=== PATIENT | male | born 1980 | race Hispanic/Latino ===

== ENCOUNTER 2018-02-13 17:12 | Emergency (ER) | payer OTHER ==
[~2018-02-13] VITALS: Ht 172.7 cm; Wt 86.2 kg
[2018-02-13 17:51] VITALS: BP 133/70
[2018-02-13 18:13] LABS: ABSOLUTE BASOPHIL COUNT 0 /CUMM (0.0-0.2); ABSOLUTE EOSINOPHIL COUNT 0.1 /CUMM (0.0-0.7); ABSOLUTE GRANULOCYTE CT 4.2 /CUMM (1.4-6.5); ABSOLUTE LYMPH COUNT 2.1 /CUMM (1.2-3.4); ABSOLUTE MONOCYTE COUNT 0.8 /CUMM (0.10-0.60); BASOPHIL % 0.4 % (0.0-2.0); EOSINOPHIL % 1.7 % (0-5); GRANULOCYTE % 57.6 % (42.2-75.2); HEMATOCRIT 47.2 % (42-52); MEAN CORPUSCULAR HGB 29.7 PG (27.0-31.0); MEAN CORPUSCULAR HGB CONC 34.1 G/DL (33.0-37.0); MEAN CORPUSCULAR VOLUME 87.1 FL (80.0-94.0); PLATELET COUNT 265 /CUMM (130-400); RBC DISTRIBUTION WIDTH 13.1 % (11.5-14.5); RED BLOOD CELL CT 5.42 /CUMM (4.70-6.10); WHITE BLOOD CELL COUNT 7.3 /CUMM (4.8-10.8)
[2018-02-13 18:20] LABS: PT 12.7 SEC (9.4-12.5); PTT 27 SEC (25-37)
--- NOTE | 2018-02-13 19:02 | RADIOLOGY REPORT ---
EXAMINATION: XR CHEST CLINICAL INFORMATION: Chest pain COMPARISON: None TECHNIQUE: 2 views of the chest were obtained. FINDINGS: No significant abnormality is noted involving the heart, lungs, mediastinum, bony thorax or soft tissues. IMPRESSION: Unremarkable examination.
--- NOTE | 2018-02-13 19:15 | ED CARDIAC/CP/PALPITATIONS ---
History of Present Illness General Chief Complaint: Chest Pain Stated Complaint: CP NUMBNESS TO LEFT ARM Source: patient, family Exam Limitations: language barrier Vital Signs & Intake/Output Vital Signs & Intake/Output Vital Signs Date Time Temp Pulse Resp B/P B/P Pulse O2 O2 Flow FiO2 Mean Ox Delivery Rate 02/13 1751 67 18 133/70 99 Room Air Triage Note: LEFT ARM NUMBNESS JUST FLEW IN FROM [place] Triage Nurses Notes Reviewed? yes Onset: Abrupt Duration: better, gone now Timing: single episode today Quality/Severity: mild HPI: Patient is a 37-year-old male with an unremarkable past medical history who is primary [place] Citizen-speaking only who flew in from [facility] yesterday patient states that today he was in his normal state health at 1500 he ate his lunch and had acute onset of left upper arm paresthesia with then it was witnessed by a sister who is also present who is translating for patient that he became anxious and diaphoretic however symptoms lasted approximately one hour and has completely resolved, patient states that approximate one month ago similar event occurred were patient followed up with his doctor in [place] and had unremarkable blood work and EKG patient denies any illicit drug use denies any smoking or alcohol use. Denies any fever chills chest pain arm pain jaw pain and leg swelling, hemoptysis history of DVT or PE Patient states for the past 3 hours he's been asymptomatic and states he is hungry (Reji Sanchez) Reconcile Medications No Known Home Medications (ePnnie SMITH,Joni) Past History Travel History Traveled to [place] past 21 day No Medical History Any Pertinent Medical History? none Surgical History Surgical History: non-contributory Psychosocial History What is your primary language [place] Citizen Tobacco Use: Never used Family History Hx Contributory? No (Reji Sanchez) Review of Systems Review of Systems Constitutional: Reports: no symptoms. EENTM: Reports: no symptoms. Respiratory: Reports: no symptoms. Cardiovascular: Reports: no symptoms. GI: Reports: no symptoms. Genitourinary: Reports: no symptoms. Musculoskeletal: Reports: no symptoms. Skin: Reports: no symptoms. Neurological/Psychological: Reports: see HPI, paresthesia. Hematologic/Endocrine: Reports: no symptoms. Immunologic/Allergic: Reports: no symptoms. All Other Systems: Reviewed and Negative (Reji Sanchez) Physical Exam Physical Exam General Appearance: no apparent distress, alert, comfortable Head: atraumatic Eyes: Bilateral: normal appearance, PERRL, EOMI. Ears, Nose, Throat: normal pharynx, normal ENT inspection Neck: normal inspection, supple Respiratory: normal breath sounds, chest non-tender, no respiratory distress Cardiovascular: regular rate/rhythm Peripheral Pulses: 2+ radial (R), 2+ radial (L) Gastrointestinal: normal bowel sounds, soft, non-tender Extremities: normal inspection, normal capillary refill, normal range of motion, no edema Neurologic/Psych: no motor/sensory deficits, awake, alert, normal gait, normal mood/affect Skin: intact, normal color, warm/dry Comments: Bilateral upper extremity myotomes dermatomes DTRs intact Core Measures ACS in differential dx? No CVA/TIA Diagnosis No Sepsis Present: No Sepsis Focused Exam Completed? No (Jareth LUONG,Reji) Progress Differential Diagnosis: AMI, aortic dissection, atrial fibrillation, cholecystitis, CHF/pulm edema, costochondritis, hyperkalemia, hypovolemia, hyperthyroid, hyperventilation, intracranial hemorrhage, musculoskeletal pain, myocarditis, pancreatitis, pericarditis, pneumonia, pneumothorax, PSVT, pulmonary embolism, PUD/GERD, PVCs/PACs, respiratory failure, rib fracture, sepsis, unstable angina, V-fib/V-Tach, WPW syndrome Plan of Care: Orders Procedure Date/time Status PARTIAL THROMBOPLASTIN TIME 02/13 1754 Complete PROTHROMBIN TIME 02/13 1754 Complete D-DIMER 02/13 1754 Complete TROPONIN LEVEL 02/13 174 Complete MAGNESIUM 02/13 174 Complete COMPREHENSIVE METABOLIC PANEL 02/13 174 Complete CBC WITHOUT DIFFERENTIAL 02/13 174 Complete EKG 02/13 174 Active Laboratory Tests 02/13/18 1800: Anion Gap 7, Estimated GFR > 60, BUN/Creatinine Ratio 17.0, Glucose 108 H, Calcium 9.4, Magnesium 2.1, Total Bilirubin 0.7, AST 34, ALT 42, Alkaline Phosphatase 67, Troponin I < 0.01, Total Protein 7.7, Albumin 4.5, Globulin 3.2, Albumin/Globulin Ratio 1.4, PT 12.7 H, INR 1.16, APTT 27, D-Dimer High Sensitivty < 200, CBC w Diff NO MAN DIFF REQ, RBC 5.42, MCV 87.1, MCH 29.7, MCHC 34.1, RDW 13.1, MPV 7.0 L, Gran % 57.6, Lymphocytes % 28.9, Monocytes % 11.4 H , Eosinophils % 1.7, Basophils % 0.4, Absolute Granulocytes 4.2, Absolute Lymphocytes 2.1, Absolute Monocytes 0.8 H, Absolute Eosinophils 0.1, Absolute Basophils 0 Patient currently is resting comfortable at bedside initial EKG normal sinus rhythm troponin negative d-dimer negative no concerns of pulmonary embolism patient has unremarkable physical exam and is asymptomatic At this time is unclear of etiology of patient's symptoms however he was strongly advised to return to emergency room if symptoms worsen patient will be visiting here for possibly one month. Heart score 0 Patient denied any chest pain or shortness of breath Diagnostic Imaging: Viewed by Me: Radiology Read. CXR Impression: no acute abnormality, no infiltrates Initial ED EKG: normal p-waves, normal QRS complex, normal sinus rhythm, NSR 65 BPM Comments: PATIENT: SAMMY MORALES PRESENT AGE: 37 PATIENT ACCOUNT NO: [id number] : 79 LOCATION: [facility] ORDERING PHYSICIAN: Dena LUONG SERVICE DATE: 02/13/18 EXAM TYPE: RAD - XRY-CHEST XRAY, TWO VIEWS EXAMINATION: XR CHEST CLINICAL INFORMATION: Chest pain COMPARISON: None TECHNIQUE: 2 views of the chest were obtained. FINDINGS: No significant abnormality is noted involving the heart, lungs, mediastinum, bony thorax or soft tissues. IMPRESSION: Unremarkable examination. DICTATED BY: Emmanuel Lang MD DATE/TIME DICTATED:02/13/181857 (Reji Sanchez) Departure Departure Disposition: HOME OR SELF CARE Condition: Stable Clinical Impression Primary Impression: Arm paresthesia, left Referrals: Patient Has No Primary Care Dr (PCP/Family) Additional Instructions: As discussed if symptoms worsen or if YOU develop A new concerning symptom return to emergency room Departure Forms: Customer Survey General Discharge Information (Reji Sanchez) Departure Prescriptions: Current Visit Scripts No Known Home Medications PA/DIRECTOR SOCIAL Co-Sign Statement Statement: ED Attending supervision documentation- I saw and evaluated the patient. I have also reviewed all the pertinent lab results and diagnostic results. I agree with the findings and the plan of care as documented in the PA's/DIRECTOR SOCIAL's documentation. x I have reviewed the ED Record and agree with the PA's/DIRECTOR SOCIAL's documentation. [] Additions or exceptions (if any) to the PAs/DIRECTOR SOCIAL's note and plan are summarized below: [] (Pennie SMITH,Joni) Critical Care Note Critical Care Note Critical Care Time: non-applicable (Jareth LUONG,Reji)
== END 2018-02-13 20:05 ==
LOC: ERH 17:12
PROVIDERS: Physician Assistant
DX: R20.2 Paresthesia of skin (principal)
CPT/HCPCS: 71046; 93005; 93010